=== PATIENT | male | born 1985 | race Two or more races ===

== ENCOUNTER 2018-07-09 13:07 | Emergency (ER) | payer SELFPAY ==
[~2018-07-09] VITALS: Ht 170.2 cm; Wt 98.0 kg
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
--- NOTE | 2018-07-09 13:49 | NUR ---
Freddy ALMANZA PA-C IS AT THE BEDSIDE EVALUATING THE PT.
[2018-07-09] MEDS ORDERED: HYDROCODONE/APAP 10/325MG 1 EA TABLET ONE (14:15)
--- NOTE | 2018-07-09 14:19 | NUR ---
PT IS GOING TO CT VIA [facility]
[2018-07-09] MEDS ORDERED: HYDROCODONE/APAP 10/325MG 1 EA TABLET PO ONE (14:30)
--- NOTE | 2018-07-09 14:37 | NUR ---
PT RETURNED FROM CT.
--- NOTE | 2018-07-09 15:29 | NUR ---
Patient discharged to home in stable condition. Written and verbal after care instructions given. Patient verbalizes understanding of instruction.
[2018-07-09 15:30] VITALS: BP 150/89
== END 2018-07-09 15:32 | disposition home or self-care (01) ==
LOC: ER 13:11
DX: S60.414A Abrasion of right ring finger, initial encounter (principal); S09.8XXA Other specified injuries of head, initial encounter; R51 Headache; V49.49XA Driver injured in collision with other motor vehicles in traffic accident, initial encounter; Y93.89 Activity, other specified; Y92.411 Interstate highway as the place of occurrence of the external cause; Y99.8 Other external cause status
CPT/HCPCS: 70450; 71045; 72125; 73130; 99284; A4606; Z7610

== ENCOUNTER 2019-03-22 15:42 | Emergency (ER) | payer MEDICAID, OTHER ==
[~2019-03-22] VITALS: Ht 185.4 cm; Wt 82.6 kg
[2019-03-22 15:48] VITALS: BP 142/75
[2019-03-22] MEDS ORDERED: IBUPROFEN 600 MG TABLET PO ONE (17:00)
== END 2019-03-22 16:46 | disposition home or self-care (01) ==
LOC: ER 15:46
DX: S13.8XXA Sprain of joints and ligaments of other parts of neck, initial encounter (principal); S33.5XXA Sprain of ligaments of lumbar spine, initial encounter; V49.49XA Driver injured in collision with other motor vehicles in traffic accident, initial encounter; Y93.89 Activity, other specified; Y92.488 Other paved roadways as the place of occurrence of the external cause; Y99.8 Other external cause status